=== PATIENT | female | born 1930 ===

== ENCOUNTER 2019-07-23 16:26 | Inpatient (IN) | payer MEDICARE, OTHER ==
[~2019-07-23] VITALS: Ht 157.5 cm; Wt 65.8 kg
--- OUTSIDE RECORDS SUMMARY | 2019-07-23 18:02 | XMS REPORT ---
Author Author [facility] [place] [place] t Organization [facility] Address [address] [place] [address] Phone Unavailable Care Team Providers Care Travel Service Consultant Name Role Phone Unavailable Unavailable Payers Payer Name Policy Type Policy Number Effective Date Expiration Date S ource Problems This patient has no known problems. Allergies, Adverse Reactions, Alerts Allergy Name Allergy Type Status Severity Reaction(s) Onset Date Inacti ve Date Treating Clinician Comments Source ciprofloxacin DA Active U 2017-10-30 00:00:00 [facility] cefdinir DA Active U 2017-10-30 00:00:00 [facility] Penicillins DA Active U 2016-02-02 00:00:00 [facility] naproxen DA Active U 2016-02-02 00:00:00 [facility] Medications This patient has no known medications. Procedures This patient has no known procedures. Results This patient has no known results.
--- NOTE | 2019-07-23 18:17 | NUR ---
Direct admit from Dr. harris office, pt stable, aaox3, denies pain, updated on poc vocied understanding, 20g L ac tolerated well, oriented to room, daughter at bedside, call light in reach will continue to monitor
--- NOTE | 2019-07-23 19:15 | NUR ---
BEDSIDE SHIFT REPORT RECEIVED. PATIENT IS AAOX3, RESTING IN BED RESP EVEN AND UNLABORED. NO DISTRESS NOTED. PT DENIES NEEDS AT THIS TIME. CALL LIGHT WITH IN EASY REACH. INSTRUCTED PT TO USE CALL LIGHT FOR ALL THE NEEDS. FAMILY AT BED SIDE. BED IS LOW/LOCKED. SIDE RAILS X2. BED ALARM IS ON. CONTINUE TO MONITOR CLOSELY
[2019-07-23 20:00] VITALS: BP 133/79
[2019-07-23] MEDS ORDERED: SODIUM CHLORIDE 0.9% 1000ML 1,000 ML IV SCH (20:15)
[2019-07-23] MEDS: SODIUM CHLORIDE 1 GM TAB PO SCH (20:20)
--- NOTE | 2019-07-23 20:20 | NUR ---
SPOKE TO DR MITCHELL ABOUT PATIENT'S STATUS. NEW ORDER RECEIVED.
[2019-07-23] MEDS ORDERED: SODIUM CHLORIDE 0.9% 1000ML 1,000 ML ONE (20:25)
--- NOTE | 2019-07-23 20:35 | NUR ---
SPOKE TO DR ESCALANTE WHO FILLING MACHINE SET UP MECHANIC FOR DR CLEMENTE ABOUT CONSULTATION
[2019-07-23 20:39] LABS: ALANINE AMINOTRANSFERASE 20 IU/L (0-55); ALBUMIN/GLOBULIN RATIO 1.2 (0.8-2.0); ALKALINE PHOSPHATASE 86 IU/L (40-150); ANION GAP 17.3 mmol/L (8-16); BLOOD UREA NITROGEN 10 mg/dL (7-26); BUN/CREATININE RATIO 13 (6-25); CALCIUM 9.1 mg/dL (8.4-10.2); CARBON DIOXIDE 20 mmol/L (22-29); CHLORIDE 79 mmol/L (98-107); CREATININE, SERUM 0.77 mg/dL (0.57-1.11); EST GLOMERULAR FILTRATION RATE > 60 ML/MIN (60-); GLUCOSE 121 mg/dL (74-118); POTASSIUM 3.3 mmol/L (3.5-5.1)
[2019-07-23] MEDS ORDERED: ACETAMINOPHEN650 MG RC (20:39)
[2019-07-23 20:41] LABS: SODIUM 113 mmol/L (136-145)
[2019-07-23] MEDS ORDERED: SYNTHROID88 MCG PO (20:45)
[2019-07-23] MEDS ORDERED: SODIUM CHLORIDE1 GM PO (20:45)
[2019-07-23] MEDS ORDERED: OMEPRAZOLE40 MG PO (20:45)
[2019-07-23] MEDS ORDERED: METOPROLOL SUCC25 MG PO (20:45)
[2019-07-23] MEDS ORDERED: ASPIR 8181 MG PO (20:45)
[2019-07-23] MEDS ORDERED: LIPITOR20 MG PO (20:45)
[2019-07-23] MEDS ORDERED: DESLORATADINE5 M1 PEG (20:45)
[2019-07-23] MEDS ORDERED: MIRTAZAPINE7.5 MG PO (20:45)
[2019-07-23] MEDS ORDERED: BENICAR20 MG PO (20:45)
[2019-07-23] MEDS ORDERED: NASONEX17 GM (20:45)
[2019-07-23] MEDS ORDERED: PROCARDIA XL30 MG PO (20:45)
--- NOTE | 2019-07-23 21:00 | NUR ---
RECEIVED CRITICAL LAB NA 113, NOTIFIED DR MITCHELL. NEW ORDER RECEIVED
--- NOTE | 2019-07-23 21:35 | NUR ---
NOTIFIED CREDIT ASSISTANT FOR COVID TESTING
[2019-07-23] MEDS ORDERED: DOCUSATE SODIUM 100 MG CAP PO PRN (21:45)
[2019-07-23] MEDS ORDERED: ONDANSETRON HCL INJ 2MG/ML 2ML 2 MG/ML VIAL IV PRN (21:45)
[2019-07-23] MEDS ORDERED: ACETAMINOPHEN 325 MG TAB PO PRN (21:45)
[2019-07-23] MEDS ORDERED: ZOLPIDEM TARTRATE 5 MG TAB PO PRN (21:45)
[2019-07-23 22:07] LABS: CREATININE,URINE RANDOM 17.23 mg/dL (47-110)
[2019-07-23 22:30] LABS: SODIUM,URINE < 20 mmol/L
[2019-07-23 22:41] VITALS: BP 133/79
--- NOTE | 2019-07-23 23:50 | NUR ---
NOTIFIED DR STEPHEN JUAREZ LEVEL 113. NEW ORDER RECEIVED. NOTIFIED CHARGE NURSE AND [employer] YARDER
[2019-07-24] VITALS (8 sets, daily range): BP systolic 117–136; BP diastolic 70–80
[2019-07-24] MEDS ORDERED: SODIUM CHLORIDE IV SCH (01:30)
[2019-07-24 04:50] LABS: ANION GAP 16.2 mmol/L (8-16); BLOOD UREA NITROGEN 9 mg/dL (7-26); BUN/CREATININE RATIO 14 (6-25); CALCIUM 8.6 mg/dL (8.4-10.2); CARBON DIOXIDE 21 mmol/L (22-29); CHLORIDE 87 mmol/L (98-107); CREATININE, SERUM 0.64 mg/dL (0.57-1.11); EST GLOMERULAR FILTRATION RATE > 60 ML/MIN (60-); GLUCOSE 102 mg/dL (74-118); MAGNESIUM 1.9 MG/DL (1.3-2.1); PHOSPHORUS 2.6 MG/DL (2.3-4.7); POTASSIUM 3.2 mmol/L (3.5-5.1); SODIUM 121 mmol/L (136-145)
[2019-07-24] MEDS: LEVOTHYROXINE SODIUM 88 MCG TAB PO SCH (05:11)
--- NOTE | 2019-07-24 07:15 | NUR ---
The pt's potassium is 3.2 and the was notified. He reports "I will look at it."
--- NOTE | 2019-07-24 08:11 | NUR ---
H&P cc: low Na HPI: 88yoF, PCP , sent to hospital due to low sodium levels while on diuretics; Daughter notes that pt did have some weakness and confusion, which led to the lab testing by PCP. PMH: Peripheral edema, HLD, HTN, hypothyroidism, GERD, PreDM, PSHx: cataract, hysterectomy Allergies; see emr FHSH; ; no cigs meds; see MAR ROS: no f/c/s/N/V/D/PERALTA/CP/sob/skin rash/dizziness/focal limb weakness; v/s revd PE tired appearing anicteric ns1s2 mod bs soft nt nd no e/t skin dry n. affect a&ox3; pierre labs/meds revd A/P: 88yoF Hyponatremia- use 2% saline NaCL Metabolic acidosis- rehydrate Hypokalemia- replace HLD- cont statin Hypothyroidism- cont replacement; check TSH HTN- cont home meds GERD- cont ppi Prop: scd; dispo: f/u labs Dru Zhang MD, PhD.
[2019-07-24] MEDS ORDERED: POTASSIUM CHLORIDE 20 MEQ TAB CR PO ONE (08:55)
[2019-07-24] MEDS ORDERED: NON-FORMULARY MEDICATION (Desloratadine 5 MG) PEG SCH (09:00)
[2019-07-24] MEDS ORDERED: OLMESARTAN 20 MG TAB PO SCH (09:00)
[2019-07-24] MEDS: NIFEDIPINE CR 30 MG TAB PO SCH (09:02)
[2019-07-24] MEDS: LORATADINE 10 MG TAB PEG SCH (09:02)
[2019-07-24] MEDS: PANTOPRAZOLE SOD 40 MG TABEC PO SCH (09:04)
[2019-07-24] MEDS: SODIUM CHLORIDE 1 GM TAB PO SCH ×4 (09:04→20:39)
[2019-07-24] MEDS: METOPROLOL SUCCINATE 25 MG TAB XL PO SCH ×2 (09:04→16:49)
[2019-07-24 09:24] LABS: BASOPHILS % 0.5 % (0.0-1.0); EOSINOPHILS % 0.5 % (0.0-6.0); HEMATOCRIT 34.2 % (34.2-44.1); HEMOGLOBIN 12.2 g/dL (12.0-16.0); LYMPHOCYTES # (AUTO) 1.7 (1.0-3.2); LYMPHOCYTES % 27.1 % (18.0-39.1); MEAN CORPUSCULAR HEMOGLOBIN 29.5 pg (28-32); MEAN CORPUSCULAR HGB CONC 35.7 g/dL (31-35); MEAN CORPUSCULAR VOLUME 82.8 fL (81-99); MONOCYTES # (AUTO) 0.6 (0.2-0.8); NEUTROPHILS # (AUTO) 3.9 (2.1-6.9); NEUTROPHILS % 62.6 % (38.7-80.0); PLATELET COUNT 270 x10e3/uL (140-360); RED BLOOD COUNT 4.13 x10e6/uL (3.6-5.1)
--- NOTE | 2019-07-24 09:30 | NUR ---
Morning med pass completed and potassium is includes in this admin.
--- NOTE | 2019-07-24 11:14 | NUR ---
I spoke with for order for PT consult.
--- NOTE | 2019-07-24 14:50 | NUR ---
DR. Driscoll is rounding at this time and ordered iv fluids stopped and stat chem 7 with results called to the and he provided his cell phone.
--- NOTE | 2019-07-24 16:12 | Diagnostic Imaging Report ---
Examination: MRI BRAIN WO CONTRAST History: Headaches. Comparison studies: None Technique: Sagittal T2; axial DWI, FLAIR, GRE or SWI, T1, Coronal FLAIR. Intravenous contrast: None Findings: Scalp: No abnormal signal. No masses. Bone marrow: Normal in signal intensity. Brain volume: Generalized volume loss. Ventricles: No hydrocephalus. Extra-axial spaces: No abnormalities. Parenchyma: There are patchy and confluent areas of T2/FLAIR hyperintensity in the periventricular and subcortical white matter, nonspecific. No masses, hemorrhage, or acute vascular insults. Suprasellar and sellar region: No abnormalities. Craniocervical junction: No abnormalities. The foramen magnum is patent. No Chiari malformations. Vessels: Normal flow-voids in the arteries and sinuses. Additional findings:None. IMPRESSION: No acute intracranial abnormalities. Chronic microvascular ischemic change. Generalized volume loss. Signed by: Dr. Jennie Steven M.D. on 07/24/2019 4:08 PM
--- NOTE | 2019-07-24 16:35 | NUR ---
Will need a RW for home use. Home health PT for strengthening and balance ex. Addendum: 07/24/19 at 1636 by Teja Abarca PT Amended: Links added.
--- NOTE | 2019-07-24 17:14 | NUR ---
Chem 7 is currently unavailable and will call to the drVandana as soon as they are ready.
[2019-07-24 17:26] LABS: ANION GAP 13.1 mmol/L (8-16); BLOOD UREA NITROGEN 12 mg/dL (7-26); BUN/CREATININE RATIO 17 (6-25); CALCIUM 8.8 mg/dL (8.4-10.2); CARBON DIOXIDE 20 mmol/L (22-29); CHLORIDE 96 mmol/L (98-107); CREATININE, SERUM 0.69 mg/dL (0.57-1.11); EST GLOMERULAR FILTRATION RATE > 60 ML/MIN (60-); GLUCOSE 130 mg/dL (74-118); POTASSIUM 4.1 mmol/L (3.5-5.1); SODIUM 125 mmol/L (136-145)
--- NOTE | 2019-07-24 17:37 | NUR ---
Lab report called to Dr. Driscoll and no new orders received.
--- NOTE | 2019-07-24 18:36 | Consultation ---
DATE OF CONSULTATION: 07/24/2019 REASON FOR CONSULTATION: Hyponatremia. HISTORY OF PRESENT ILLNESS: Ms. Naina Mayers is a delightful lady with underlying history of hypertension. She is prediabetic, hypothyroid, underlying osteoarthritis, hyperlipidemia, multiple other comorbidities, who was admitted with altered mental status and gait disturbance. Most of the history from doctor's note from her primary care doctor's note as well as daughter, who is currently by bedside. The patient is delightfully alert, comfortable, oriented, sitting up in chair, in no apparent distress, was started on IV saline, hypertonic, which I have asked the nurse to stop immediately. She denies shortness of breath, headache, fever, chills, or nausea. Also denies any diarrhea. She has been maintained on hydrochlorothiazide, levothyroxine, mirtazapine, nifedipine, and olmesartan at home. ALLERGIES: TO ALENDRONATE, AMOXICILLIN, CIPRO, AUGMENTIN, NAPROXEN, AND BACTRIM. SOCIAL HISTORY: Does not smoke or drink. FAMILY HISTORY: Significant for hypertension. CURRENT MEDICATIONS: Atorvastatin 40 mg at bedtime, levothyroxine 88 mcg daily, Claritin, metoprolol 25 mg b.i.d., Remeron 7.5 mg at bedtime, nifedipine 60 mg daily, olmesartan, Benicar 40 mg daily. Also sodium chloride 1 g p.o. t.i.d. PHYSICAL EXAMINATION: GENERAL: Awake, alert, oriented x3, sitting up in no apparent distress. VITAL SIGNS: Blood pressure 126/76, pulse is 67, afebrile, oxygen saturation 99%. HEAD AND NECK: Cornea clear. Oral mucosa moist. Neck veins flat. LUNGS: Relatively clear. HEART: S1 and S2 audible. ABDOMEN: Otherwise soft and nontender. No apparent visceromegaly. EXTREMITIES: Lower extremity examination shows no edema. WORKUP: Included urinalysis done earlier shows urine sodium less than 20. Urine creatinine 17.2. Chemistry shows serum sodium of 113, up to 121 now with a potassium 3.2, which has apparently been replaced. TSH of 3.5. Creatinine 0.6. IMPRESSION AND PLAN: Hyponatremia, now with sodium 121. I repeated chemistries including uric acid. Nurse to call me with the results. I will discontinue existing IV fluids. Sodium chloride tablets increase to 2 tablets 3 times a day. We will place on a 1200 mL p.o. fluid restriction. Further recommendations to follow. MD FATOUMATA Muse/MATT /[id number]
--- NOTE | 2019-07-24 19:12 | NUR ---
Report to the oncoming nurse.
[2019-07-24] MEDS: ATORVASTATIN 40 MG TAB PO SCH (20:39)
[2019-07-24] MEDS ORDERED: MIRTAZAPINE 15 MG TAB PO SCH (21:00)
[2019-07-24] MEDS ORDERED: ATORVASTATIN 20 MG TAB PO SCH (21:00)
[2019-07-25] VITALS (8 sets, daily range): BP systolic 113–132; BP diastolic 63–81
[2019-07-25] MEDS: LEVOTHYROXINE SODIUM 88 MCG TAB PO SCH (05:46)
[2019-07-25 06:28] LABS: BASOPHILS # (AUTO) 0.1 (0.0-0.1); BASOPHILS % 0.9 % (0.0-1.0); EOSINOPHILS # (AUTO) 0.1 (0.0-0.4); EOSINOPHILS % 0.8 % (0.0-6.0); HEMATOCRIT 35.6 % (34.2-44.1); HEMOGLOBIN 12.2 g/dL (12.0-16.0); LYMPHOCYTES # (AUTO) 1.9 (1.0-3.2); LYMPHOCYTES % 29.1 % (18.0-39.1); MEAN CORPUSCULAR HEMOGLOBIN 29.3 pg (28-32); MEAN CORPUSCULAR HGB CONC 34.3 g/dL (31-35); MEAN CORPUSCULAR VOLUME 85.4 fL (81-99); MONOCYTES # (AUTO) 0.6 (0.2-0.8); MONOCYTES % 9.9 % (4.4-11.3); NEUTROPHILS # (AUTO) 3.8 (2.1-6.9); PLATELET COUNT 281 x10e3/uL (140-360); RED BLOOD COUNT 4.17 x10e6/uL (3.6-5.1); RED CELL DISTRIBUTION WIDTH 13.4 % (11.7-14.4)
[2019-07-25 06:46] LABS: ALANINE AMINOTRANSFERASE 21 IU/L (0-55); ALBUMIN 3.7 g/dL (3.5-5.0); ALBUMIN/GLOBULIN RATIO 1.2 (0.8-2.0); ALKALINE PHOSPHATASE 64 IU/L (40-150); ANION GAP 11.9 mmol/L (8-16); BLOOD UREA NITROGEN 9 mg/dL (7-26); BUN/CREATININE RATIO 14 (6-25); CALCIUM 8.9 mg/dL (8.4-10.2); CARBON DIOXIDE 22 mmol/L (22-29); CHLORIDE 100 mmol/L (98-107); CREATININE, SERUM 0.66 mg/dL (0.57-1.11); EST GLOMERULAR FILTRATION RATE > 60 ML/MIN (60-); GLUCOSE 101 mg/dL (74-118); POTASSIUM 3.9 mmol/L (3.5-5.1); SODIUM 130 mmol/L (136-145)
--- NOTE | 2019-07-25 06:50 | NUR ---
IM-progress note O/N see below ROS: no f/c/s/N/V/D/PERALTA/CP/sob/skin rash/dizziness/focal limb weakness; v/s revd PE tired appearing anicteric ns1s2 mod bs soft nt nd no e/t skin dry n. affect a&ox3; pierre labs/meds revd A/P: 88yoF Hyponatremia- use 2% saline NaCL Metabolic acidosis- rehydrate Hypokalemia- replace HLD- cont statin Hypothyroidism- cont replacement; check TSH HTN- cont home meds GERD- cont ppi Prop: scd; dispo: f/u labs 5-30 improving; f/u labs; MRI brain negative; Dru Zhang MD, PhD.
--- NOTE | 2019-07-25 07:00 | NUR ---
The pt was received from the off-going nurse in stable condition with bedrails in upright position times 2 and no comp of pain.
[2019-07-25 07:01] LABS: MAGNESIUM 2.1 MG/DL (1.3-2.1)
[2019-07-25] MEDS: LORATADINE 10 MG TAB PEG SCH (09:09)
[2019-07-25] MEDS: NIFEDIPINE CR 30 MG TAB PO SCH (09:10)
[2019-07-25] MEDS: SODIUM CHLORIDE 1 GM TAB PO SCH ×2 (09:10→17:27)
[2019-07-25] MEDS: PANTOPRAZOLE SOD 40 MG TABEC PO SCH (09:10)
[2019-07-25] MEDS: METOPROLOL SUCCINATE 25 MG TAB XL PO SCH ×2 (09:11→17:28)
[2019-07-25] MEDS ORDERED: PHOSPHORUS 250 MG TAB PO NR (13:45)
--- NOTE | 2019-07-25 19:05 | NUR ---
Patient visited in room during nursing rounds. Patient alert and oriented x3. Pt is uzbek speaking only. Pt on 1.2L fluid restriction daily. Daughter at bedside to stay with pt tonight. Pt ambulates in room using walker with 1-person assist prn. No distress or discomfort noted. Call adams within reach. Will monitor pt closely.
[2019-07-25] MEDS: ATORVASTATIN 40 MG TAB PO SCH (21:05)
[2019-07-26] VITALS (8 sets, daily range): BP systolic 109–142; BP diastolic 61–79
[2019-07-26] MEDS: LEVOTHYROXINE SODIUM 88 MCG TAB PO SCH (06:05)
--- NOTE | 2019-07-26 07:45 | NUR ---
Received bedside shift report from off going nurse. Patient in stable condition, no s/s of distress noted. Telemetry applied. Bed in lowest position and locked. Call light within reach.
[2019-07-26] MEDS: LORATADINE 10 MG TAB PEG SCH (08:40)
[2019-07-26] MEDS: PANTOPRAZOLE SOD 40 MG TABEC PO SCH (08:41)
[2019-07-26] MEDS: NIFEDIPINE CR 30 MG TAB PO SCH ×2 (08:43→21:00)
[2019-07-26] MEDS: SODIUM CHLORIDE 1 GM TAB PO SCH ×2 (08:44→16:47)
[2019-07-26] MEDS: METOPROLOL SUCCINATE 25 MG TAB XL PO SCH ×2 (08:45→16:47)
--- NOTE | 2019-07-26 16:54 | NUR ---
IM-progress note O/N see below ROS: no f/c/s/N/V/D/PERALTA/CP/sob/skin rash/dizziness/focal limb weakness; v/s revd PE tired appearing anicteric ns1s2 mod bs soft nt nd no e/t skin dry n. affect a&ox3; pierre labs/meds revd A/P: 88yoF Hyponatremia- use 2% saline NaCL Metabolic acidosis- rehydrate Hypokalemia- replace HLD- cont statin Hypothyroidism- cont replacement; check TSH HTN- cont home meds GERD- cont ppi Prop: scd; dispo: f/u labs 5-30 improving; f/u labs; MRI brain negative; 5- Na continues to improve; check phos. Dru Zhang MD, PhD.
--- NOTE | 2019-07-26 19:03 | NUR ---
Completed bedside shift report with the oncoming night nurse. Patient in stable condition, no s/s of distress noted. Telemetry applied. Bed in lowest position and locked. Call light within reach.
--- NOTE | 2019-07-26 19:05 | NUR ---
Patient visited in room during nursing rounds. Patient alert and oriented x3. Pt is amharic speaking only. Pt on 1.2L fluid restriction daily. Daughter at bedside to stay with pt tonight. Pt ambulates in room using walker with 1-person assist prn. No distress or discomfort noted. Call adams within reach. Will monitor pt closely.
[2019-07-26] MEDS: ATORVASTATIN 40 MG TAB PO SCH (20:37)
--- NOTE | 2019-07-26 20:43 | NUR ---
Dr. Zhang visited pt and aware of pt condition. Nurse (Nir) spoke to Dr. Zhang about pt refusing AM dose of Nifedipine. MD aware and changed frequency of Nifedipine to HS. MD also ordered PT to evaluate and treat pt for inhospital and start PT at home.
[2019-07-27] VITALS: BP 149/76
[2019-07-27 04:30] VITALS: BP 122/64
[2019-07-27 05:51] LABS: ANION GAP 13.3 mmol/L (8-16); BLOOD UREA NITROGEN 11 mg/dL (7-26); BUN/CREATININE RATIO 17 (6-25); CALCIUM 9.2 mg/dL (8.4-10.2); CARBON DIOXIDE 22 mmol/L (22-29); CHLORIDE 99 mmol/L (98-107); CREATININE, SERUM 0.66 mg/dL (0.57-1.11); EST GLOMERULAR FILTRATION RATE > 60 ML/MIN (60-); GLUCOSE 111 mg/dL (74-118); POTASSIUM 3.3 mmol/L (3.5-5.1); SODIUM 131 mmol/L (136-145)
[2019-07-27] MEDS: LEVOTHYROXINE SODIUM 88 MCG TAB PO SCH (05:58)
--- NOTE | 2019-07-27 07:13 | NUR ---
D/C summary Principal Dx: Hyponatremia- use 2% saline NaCL Metabolic acidosis- rehydrate Hypokalemia- replace Seocndary Dx: HLD- cont statin Hypothyroidism- cont replacement; check TSH HTN- cont home meds GERD- cont ppi Prop: scd; dispo: f/u labs 5-30 improving; f/u labs; MRI brain negative; 5-31 Na continues to improve; check phos. 6-1-20 HypoK and HypoPhos- replace; d/c planning; d/c home f/u pcp 1 week stable d/c>35mins Dru Zhang MD, PhD.
[2019-07-27] MEDS ORDERED: SODIUM CHLORIDE1 GM PO (07:15)
[2019-07-27 08:00] VITALS: BP 124/70
[2019-07-27] MEDS ORDERED: POTASSIUM CHLORIDE 20 MEQ TAB CR PO ONE (08:00)
[2019-07-27] MEDS ORDERED: POTASSIUM PHOSPHATE 20 MM in SODIUM CHLORIDE 0.9% 250ML 250 ML IV ONE (08:15)
[2019-07-27] MEDS: SODIUM CHLORIDE 1 GM TAB PO SCH ×2 (08:32→14:05)
[2019-07-27 08:34] VITALS: BP 124/70
[2019-07-27] MEDS: METOPROLOL SUCCINATE 25 MG TAB XL PO SCH ×2 (09:05→16:01)
[2019-07-27] MEDS: PANTOPRAZOLE SOD 40 MG TABEC PO SCH (09:05)
[2019-07-27] MEDS: LORATADINE 10 MG TAB PEG SCH (09:05)
--- NOTE | 2019-07-27 10:18 | NUR ---
IMM letter delivered and explained to pt and daughter at bedside. They verbalized understanding. Pt asked her daughter to sign. Signed copy placed in chart. Congolese copy given to pt's daughter.
[2019-07-27] MEDS ORDERED: ONDANSETRON HCL 4 MG ORAL DISINTEGRATING TAB PO PRN (10:30)
[2019-07-27 11:51] VITALS: BP 124/66
[2019-07-27 16:00] VITALS: BP 114/72
--- NOTE | 2019-07-27 16:12 | NUR ---
Received order for home health. Spoke to pt and daughter at bedside. They are agreeable. Pt's daughter Kayla states her dad used [facility]. Choice letter signed for [facility]. Copy to pt's daughter with HH contact information. Signed copy placed in front of chart. CM asked that they call HH company if they do not hear from them within 24 hrs of discharge. Referral was faxed.
[2019-07-27 16:59] LABS: ANION GAP 15.1 mmol/L (8-16); BLOOD UREA NITROGEN 12 mg/dL (7-26); BUN/CREATININE RATIO 17 (6-25); CALCIUM 9.6 mg/dL (8.4-10.2); CARBON DIOXIDE 22 mmol/L (22-29); CHLORIDE 100 mmol/L (98-107); CREATININE, SERUM 0.72 mg/dL (0.57-1.11); EST GLOMERULAR FILTRATION RATE > 60 ML/MIN (60-); GLUCOSE 120 mg/dL (74-118); PHOSPHORUS 3.5 MG/DL (2.3-4.7); POTASSIUM 4.1 mmol/L (3.5-5.1); SODIUM 133 mmol/L (136-145)
--- NOTE | 2019-07-27 17:14 | NUR ---
aware of lab results. Per "cleared to discharge. Follow up 7-10 days" Notified of message
--- NOTE | 2019-07-27 18:25 | NUR ---
Left FA IV discontinued. No signs of infiltration noted. 2x2 gauze and coban placed. Taken via wheelchair by PCT to personal car. Accompanied by daughter. AAOX3 to time, person, and place. Respirations even and unlabored. Discharge instructions, rx, and all personal belongings taken with patient.
== END 2019-07-27 18:25 | disposition home or self-care (01) | DRG 641 ==
LOC: MED/SURG2 18:00
PROVIDERS: ADMIT Internal Medicine; ATTEND Internal Medicine
DX: E87.1 Hypo-osmolality and hyponatremia (principal); R26.81 Unsteadiness on feet; R51 Headache; E78.5 Hyperlipidemia, unspecified; I10 Essential (primary) hypertension; E03.9 Hypothyroidism, unspecified; K21.9 Gastro-esophageal reflux disease without esophagitis; R73.03 Prediabetes; E87.2 Acidosis; E87.6 Hypokalemia; E83.39 Other disorders of phosphorus metabolism; Z88.1 Allergy status to other antibiotic agents; Z88.2 Allergy status to sulfonamides; Z88.8 Allergy status to other drugs, medicaments and biological substances
CPT/HCPCS: 36415; 70551; 80048; 80053; 82570; 82948; 83735; 84100; 84133; 84295; 84300; 84443; 84550; 85025; 87635; 97139; J7030; J7050